=== PATIENT | female | born 1975 | race Caucasian/White ===

== ENCOUNTER → 2018-07-18 | Outpatient (CLI) | payer OTHER ==
[~2018-07-18] MED LIST: CHOL10005 PO; IBUP800T37 PO; LEVO50TA86 PO; OXYC-865 PO
--- NOTE | 2018-07-18 16:50 | RADIOLOGY IMAGING REPORT ---
FACILITY: [facility] - [place] PATIENT NAME: ESTEVAN RAMSEY : [id number] MR: [id number] V: [id number] EXAM DATE: ORDERING PHYSICIAN: ROLA GARCIA TECHNOLOGIST: Maddi Munson PROCEDURE:BILATERAL DIGITAL SCREENING MAMMOGRAM WITH CAD ASSISTED INTERPRETATION & 3D TOMOSYNTHESIS COMPARISON:Prior mammograms 03/18/15, 11/22/12. INDICATIONS:SCREENING FINDINGS: The breasts are heterogeneously dense which can obscure small masses.The parenchymal pattern has remained stable allowing for difference in mammographic technique & patient positioning. DIAGNOSTIC CATEGORY 1--NEGATIVE. RECOMMENDATIONS: ROUTINE MAMMOGRAM AND CLINICAL EVALUATION. IMPRESSION: BIRADS 1: Negative. No significant abnormality is seen. Dictated by: Marnie Mcneill M.D. on 07/18/2018 at 9:13 Transcribed by: GERI on 07/18/2018 at 12:00 Approved by: Marnie Mcneill M.D. on 07/18/2018 at 16:49 [facility]
== END ==
LOC: MAMO 01:39
PROVIDERS: ATTEND Nurse Practitioner Family
DX: Z12.31 Encounter for screening mammogram for malignant neoplasm of breast (principal)
CPT/HCPCS: 77063; 77067